=== PATIENT | female | born 1950 | race Caucasian/White ===

== ENCOUNTER → 2018-07-07 | Outpatient (CLI) | payer MEDICARE, OTHER ==
[~2018-07-07] MED LIST: ACET-685 PO; ASPI-484 PO; ATOR20TA PO; DULO60CA7 PO; ESTR30CR VG; GABA300C10 PO; HYDR-3101 PO; IBUP-1131 PO; IBUP200T49 PO; LEVO25TA4 PO; LISI-414 PO; MELO7.5T31 PO; MIRA25TA PO; NITR100C58 PO; OLOP30.5; PHEN100T90 PO; TRAM50TA PO; ZOLP10TA PO; ZOLP10TA5 PO
--- NOTE | 2018-07-07 10:45 | DIREP ---
PROCEDURE:US ABDOMEN LIMITED(SINGLE ORGAN-QUAD) COMPARISON:[facility], CT, CT ABD/PELVIS W/O, 06/25/2014, 09:15 AM. INDICATIONS:R74.8 ALKALINE PHOSPHATASE RAISED, K80.50 BILIARY COLIC, R10.11 RUQ PAIN FINDINGS: CBD:0.4 cm GALLBLADDER:0.2 cm RIGHT KIDNEY:9.4 x 4.9 x 4.0 cm PANCREAS:Normal pancreas. LIVER:Increased hepatic echotexture with poor sonographic penetration consistent with significant hepatic steatosis. Hepatic detail is significantly limited. Hepatopetal flow in the portal vein. GALLBLADDER:Normal appearing gallbladder without evidence for gallbladder wall thickening or pericholecystic fluid. Reverb from bowel gas is noted. BILIARY:There is no biliary ductal dilatation. RIGHT KIDNEY:Normal. No hydronephrosis. OTHER:Negative. No ascites is identified. CONCLUSION:Fatty liver. No definite gallstones. Dictated by: IRISA Physician on 07/07/2018 at 10:13 AM ld
== END | disposition home or self-care (01) ==
LOC: RAD 09:36
PROVIDERS: ATTEND Physician Assistant
DX: K76.0 Fatty (change of) liver, not elsewhere classified (principal); K80.50 Calculus of bile duct without cholangitis or cholecystitis without obstruction; R74.8 Abnormal levels of other serum enzymes
CPT/HCPCS: 76705

== ENCOUNTER → 2018-07-15 | Outpatient (CLI) | payer MEDICARE, OTHER ==
--- NOTE | 2018-07-15 14:50 | DIREP ---
PROCEDURE:NM GALLBLADDER SCAN/NUNN COMPARISON:None. INDICATIONS:R74.8 ALKALINE PHOSPHATASE RAISED, R10.11 RUQ PAIN TECHNIQUE:After obtaining the patient's consent, radiopharmaceutical was injected and images obtained sequentially for one hour. PHARMACEUTICAL(S):6.75 mCi Tc-99m YANNICK derivative. 8 oz ensure plus, PO FINDINGS: LIVER:Normal. BILIARY DUCTS:Normal. Visualized at 5 minutes. GALLBLADDER:Normal. Visualized at 25 minutes INTESTINE:Normal. Visualized at 20 minutes EJECTION FRACTION:72 %. Normal is greater than 35%. Administration of stimulatory agent resulted in severe nausea and moderate cramping. CONCLUSION: 1. Normal hepatic uptake and excretion without evidence of bowel obstruction. 2. Normal gallbladder ejection fraction of 72%. Dictated by: Sam Acevedo MD on 07/15/2018 at 02:48 PM
== END | disposition home or self-care (01) ==
LOC: RAD 11:25
PROVIDERS: ATTEND Family Medicine
DX: R74.8 Abnormal levels of other serum enzymes (principal); R10.11 Right upper quadrant pain
CPT/HCPCS: 78227; A9537

== ENCOUNTER 2020-09-21 16:13 | Emergency (ER) | payer MEDICARE, OTHER ==
[~2020-09-21] VITALS: Ht 162.6 cm; Wt 83.9 kg
[~2020-09-21 16:13] MED LIST changes: -ASPI-484 PO; +ASPI-485 PO; -LISI-414 PO; +LISI-593 PO
[2020-09-21 16:30] VITALS: BP 139/63
--- NOTE | 2020-09-21 16:35 | NUR ---
ARRIVAL PATIENT ARRIVED TO ED3 AMBULATORY, C/O OF DIZZINESS TODAY WITH A SYNCOPAL EPISODE AND A HEADACHE FOR ONE YEAR, PATIENT STATES SHE TOOK HER BLOOD PRESSURE TODAY AND IT WAS LOW, CALLED HER POLICE RESERVES COMMANDER AND WAS TOLD TO COME TO THE ED FOR EVAL, DOCTOR JAMES NOTIFIED OF PATIENT'S ARRIVAL.
[2020-09-21] MEDS ORDERED: NS 1000ML 1,000 ML IV STA (17:21)
--- NOTE | 2020-09-21 17:32 | PCM.EKG ---
[facility] Test Date: 2020-09-21 Test Time: 17:27:02 Pat Name: WADE SAWYER Department: Room: Gender: F [employer] Supervisor: MELISSA : [id number] Requested By: ADRIEL RAMIREZ Order Number: [id number] Reading MD: Adriel RAMIREZ Measurements Intervals Priddy Rate: 62 P: 68 OK: 169 QRS: 59 QRSD: 100 T: 53 QT: 425 QTc: 432 Interpretive Statements Sinus rhythm Abnormal R-wave progression, early transition Borderline repolarization abnormality Baseline wander in lead(s) V1,V2 No previous ECG available for comparison Electronically Signed On 09-27-2020 7:10:22 CDT by Adriel RAMIREZ Please click the below link to view image of tracing.
[2020-09-21 17:34] LABS: BASOPHIL % 0.2 % (0.0-0.2); EOSINOPHIL # 0.1 10^3/uL (0.0-0.2); EOSINOPHIL % 0.9 % (0.0-5.0); LYMPHOCYTES # 2.72 10^3/uL1 (1.0-4.8); LYMPHOCYTES % 28.4 % (24.0-44.0); MEAN CORP HGB 30.2 pg (26-34); MONOCYTES # 0.6 10^3/uL (0.3-0.8); MONOCYTES % 5.7 % (5.0-12.0); NEUTROPHIL # 6.2 10^3/uL (1.8-7.7); NEUTROPHILS % 64.7 % (41.0-85.0); PLATELET COUNT 262 10^3/uL (150-400); RED CELL DISTRIBUTION WIDTH 12.4 % (11.5-14.5)
--- NOTE | 2020-09-21 17:55 | DIREP ---
PROCEDURE:CT HEAD OR BRAIN W/O CONTRAST COMPARISON:[facility], CR, XRAY CHEST SINGLE VW, 09/21/2020, 05:45 PM. INDICATIONS:Syncope TECHNIQUE:Axial CT images were obtained from vertex to the skull base without the administration of IV contrast. FINDINGS: VENTRICLES: The ventricles are normal in size and configuration for age. No hydrocephalus. CEREBRUM: Normal cerebral morphology with appropriate martinez white matter differentiation. No intracranial hemorrhage, mass-effect, or midline shift. No CT evidence of acute infarction. CEREBELLUM: Normal. BRAINSTEM: Normal. BASAL CISTERNS: Normal. SKULL: Normal. No fracture. SINUSES: Normal. Visualized paranasal sinuses and mastoid air cells are clear. OTHER: None. No scalp swelling. CONCLUSION: No acute intracranial abnormality. Dictated by: Hemant Barfield MD on 09/21/2020 at 05:51 PM
--- NOTE | 2020-09-21 17:57 | ER.PDOC ---
General Chief Complaint: General Complaint Stated Complaint: LOW BLOOD PRESSURE TRAVEL OUT OF US: No Time seen by MD: 17:54 Source: patient Exam Limitations: no limitations History of Present Illness Initial Comments Low blood pressure today and patient also told me that she might have had a syncopal episode this morning but she is not very sure. No chest pain or shortness of breath. She complains of a headache for 1 year. No nausea or vomiting. No fever or chills. No neck pain or stiffness. Severity: moderate Associated Symptoms: denies symptoms Allergies: Coded Allergies: No Known Allergies (Unverified , 02/20/16) Home Meds Reported Medications Zolpidem Tartrate (AMBIEN) 10 Mg Tablet, 1 TAB PO HS, #30 TAB 5 Refills 08/17/15 Hydrocodone Bit/Acetaminophen (NORCO 7.5-325) 1 Each Tablet, 2 TAB PO BID, #120 TAB 08/09/15 Gabapentin (GABAPENTIN) 300 Mg Capsule, 1 CAP PO BID, #90 CAP 3 Refills 08/09/15 Meloxicam (MELOXICAM) 7.5 Mg Tablet, 1 TAB PO DAILY, #30 TAB 2 Refills 03/09/15 Levothyroxine Sodium (LEVOTHYROXINE SODIUM) 25 Mcg Tablet, 25 MCG PO DAILY, TABLET 04/28/14 Duloxetine Hcl (CYMBALTA) 60 Mg Capsule.dr, 60 MG PO DAILY 04/28/14 Lisinopril (LISINOPRIL) 5 Mg Tablet, 5 MG PO DAILY, TABLET 04/28/14 Atorvastatin 20MG (LIPITOR 20MG) 20 Mg Tablet, 20 MG PO DAILY, TAB 04/28/14 Past Medical History Medical History: cardiac problems, diabetes, hypertension, thyroid disease Surgical History: appendectomy, back, tonsillectomy, other Family History Significant Family History: no pertinent family hx Social History Smoking: non-smoker Alcohol Use: none Drug Use: none Review of Systems Constitutional: no symptoms reported EENTM: no symptoms reported Respiratory: no symptoms reported Cardiovascular: no symptoms reported Gastrointestinal: no symptoms reported Psychiatric/Neurological: see HPI All Other Systems: Reviewed and Negative Physical Exam General Appearance: No Apparent Distress, WD/WN Neck: Non-Tender, Full Range of Motion, Supple, Normal Inspection Respiratory: chest non-tender, lungs clear, normal breath sounds, no respiratory distress CVS: reg rate & rhythm, no murmur, no gallop, pulses nml, nml capillary refill Gastrointestinal: Normal Bowel Sounds, No Organomegaly, No Pulsatile Mass, Non Tender Back: Normal Inspection, No CVA Tenderness, No Vertebral Tenderness Extremities: Normal Range of Motion, Non-Tender, Normal Inspection, No Pedal Edema Neurologic/Psychiatric: 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 starch 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 II-XII NML as Tested, No Motor/Sensory Deficits, Alert, Normal Mood/Affect, Oriented x 3 Skin: Normal Color, Warm/Dry Lymphatic: No Adenopathy Results/Orders Results/Orders Orders - ADRIEL RAMIREZ MD Cbc With Auto Diff (09/21/20 17:21) Comprehensive Metabolic Panel (09/21/20 17:21) Creatine Kinase (09/21/20 17:21) Creatine Kinase Mb (09/21/20 17:21) Troponin I (09/21/20 17:21) Xr Chest 1v (09/21/20 17:21) Ekg-Routine (09/21/20 17:21) Ct Head Wo Contrast (09/21/20 17:21) Urinalysis (09/21/20 17:21) 0.9 % Sodium Chloride (Ns 1000ml) (09/21/20 17:21) PT (09/21/20 17:29) Partial Thromboplastin Time. (09/21/20 17:29) Urine Culture (09/21/20 18:40) 0.9 % Sodium Chloride (Ns 1000ml) (09/21/20 18:53) Vital Signs Date Time Temp Pulse Resp B/P (MAP) Pulse Ox O2 Delivery O2 Flow Rate FiO2 09/21/20 16:30 97.6 71 16 09/21/20 16:30 97.6 71 16 139/63 (88) 99 Room Air 09/21/20 16:30 97.6 71 16 99 Laboratory Tests Test 09/21/20 17:30 09/21/20 18:40 White Blood Count 9.6 10^3/uL (4.5-11.0) Red Blood Count 4.01 10^6/uL (4.00-5.20) Hemoglobin 12.1 g/dL (12.0-15.0) Hematocrit 37.1 % (36.0-46.0) Mean Corpuscular Volume 92.5 fL (78-100) Mean Corpuscular Hemoglobin 30.2 pg (26-34) Mean Corpuscular Hemoglobin Concent 32.6 g/dL (33-36.5) L Red Cell Distribution Width 12.4 % (11.5-14.5) Platelet Count 262 10^3/uL (150-400) Mean Platelet Volume 10.8 fL (7.8-11.0) Neutrophils (%) (Auto) 64.7 % (41.0-85.0) Lymphocytes (%) (Auto) 28.4 % (24.0-44.0) Monocytes (%) (Auto) 5.7 % (5.0-12.0) Neutrophils # (Auto) 6.2 10^3/uL (1.8-7.7) Lymphocytes # (Auto) 2.72 10^3/uL1 (1.0-4.8) Monocytes # (Auto) 0.6 10^3/uL (0.3-0.8) Absolute Immature Granulocyte (auto 0.01 10^3 u/L (0-2) Absolute Eosinophils (auto) 0.1 10^3/uL (0.0-0.2) Immature Granulocytes % 0.10 % (0.00-0.50) Eosinophils % 0.9 % (0.0-5.0) Basophils % 0.2 % (0.0-0.2) Basophils # 0.0 10^3/uL (0.0-0.1) Prothrombin Time 10.6 SEC (9.6-12.0) Prothrombin Time INR (Non-Therap) 1.0 Activated Partial Thromboplast Time 22.0 SEC (24.67-30.72) Sodium Level 138 mmol/L (132-145) Potassium Level 3.7 mmol/L (3.6-5.2) Chloride Level 105.0 mmol/L (96-109) Carbon Dioxide Level 18.2 mmol/L (20.0-32) L Anion Gap 18.5 Blood Urea Nitrogen 20 mg/dL (7-18) H Creatinine 0.66 mg/dL (0.59-1.40) Estimated GFR () 106.5 (>/=60) Est GFR (CKD-EPI)(Non-Afr Romanian) 88.0 (>/=60) BUN/Creatinine Ratio 30.0 Glucose Level 160 mg/dL (70-110) H Calcium Level 8.6 mg/dL (8.4-10.5) Total Bilirubin 0.2 mg/dL (0.2-1.0) Aspartate Amino Transferase (AST) 22 U/L (0-35) Alanine Aminotransferase (ALT) 26 U/L (12-78) Alkaline Phosphatase 98 U/L (50-136) Total Creatine Kinase 78 U/L (26-192) Creatine Kinase MB 0.5 ng/mL (0.5-3.6) Troponin I < 0.02 ng/mL (0.00-0.05) Total Protein 6.3 g/dL (6.4-8.2) L Albumin 3.6 g/dL (3.4-5.0) Globulin 2.7 Albumin/Globulin Ratio 1.333 Urine Collection Type CCMS Urine Color YELLOW Urine Appearance CLEAR Urine Bilirubin NEGATIVE (NEGATIVE) Urine Ictotest (NEGATIVE) Urine Ketones TRACE (NEGATIVE) H Urine Specific [place] 1.025 (1.005-1.030) Urine pH 5.5 (4.5-8.0) Urine Protein NEGATIVE (NEGATIVE) Urine Urobilinogen 0.2 E.U./dL (0.2) Urine Nitrate NEGATIVE (NEGATIVE) Urine Leukocyte Esterase TRACE (NEGATIVE) H Urine Glucose (Auto)(UA) NEGATIVE (NEGATIVE) Urine Blood NEGATIVE (NEGATIVE) Urine RBC 0-2 RBC/HPF (NONE SEEN) Urine WBC 2-5 WBC/HPF (0-2) Urine Squamous Epithelial Cells FEW #/HPF (FEW) Urine Bacteria FEW (NONE SEEN) H Progress Progress Labs are unremarkable. Patient tilted and so will be hydrated with NS. Patient feels better after hydration and ready to go home. EKG/XRAY/CT/US EKG: NSR, no ST T wave changes EKG Comments: HR 62, normal P axis XRAY: chest (No acute abnormality) CT Comments: No acute abnormality on CT head ER DEPART Departure Time of Disposition: 19:02 Disposition: 01 HOME / SELF CARE / HOMELESS Impression: Primary Impression: Dehydration Additional Impressions: UTI (urinary tract infection) Headache Condition: Improved Referrals: MADHURI VAZQUEZ MD (PCP) PRIMARY CARE PROVIDER Additional Instructions: Ciprofloxacin Push fluids at home Follow-up with your PCP in 1 to 2 days Return to ED if worsening symptoms or concerns Duration or Time Spent with Pa: 60 min Problem Qualifiers Additional Impressions: UTI (urinary tract infection) Urinary tract infection type: site unspecified Hematuria presence: without hematuria Qualified Codes: N39.0 - Urinary tract infection, site not specified Headache Headache type: unspecified Headache chronicity pattern: chronic headache Intractability: not intractable Qualified Codes: R51.9 - Headache, unspecified; G89.29 - Other chronic pain ADRIEL RAMIREZ MD Sep 21, 2020 17:57
--- NOTE | 2020-09-21 18:02 | DIREP ---
PROCEDURE:CHEST 1 VIEW COMPARISON:None. INDICATIONS:Syncope FINDINGS: LUNGS/PLEURA:No significant pulmonary parenchymal abnormalities. No effusions. VASCULATURE:Normal. Unremarkable pulmonary vasculature. CARDIAC:Normal. No cardiac silhouette abnormality or cardiomegaly. MEDIASTINUM:Normal. No visible mass or adenopathy. BONES:Normal. No fracture or visible bony lesion. OTHER:Dorsal column stimulator CONCLUSION:Negative exam Dictated by: Royer Jiang M.D. on 09/21/2020 at 05:59 PM
[2020-09-21 18:18] LABS: ALANINE AMINOTRANSFERASE(ML) 26 U/L (12-78); ALKALINE PHOSPHATASE 98 U/L (50-136); ASPARTATE AMINO TRANSFERASE 22 U/L (0-35); CALCIUM 8.6 mg/dL (8.4-10.5); CARBON DIOXIDE 18.2 mmol/L (20.0-32); GLUCOSE 160 mg/dL (70-110)
[2020-09-21 18:45] LABS: BILIRUBIN,URINE NEGATIVE (NEGATIVE); UA COLOR YELLOW; UROBILINOGEN,URINE 0.2 E.U./dL (0.2)
[2020-09-21] MEDS ORDERED: NS 1000ML 1,000 ML ONE (18:53)
--- NOTE | 2020-09-21 19:30 | NUR ---
IV DC'D DC'D BY MARY VEGA, TIP INTACT, NO BLEEDING
[2020-09-21 19:33] VITALS: BP 102/63
== END 2020-09-21 19:33 | disposition home or self-care (01) ==
LOC: ER 16:13
DX: N39.0 Urinary tract infection, site not specified (principal); E86.0 Dehydration; G89.29 Other chronic pain; E11.22 Type 2 diabetes mellitus with diabetic chronic kidney disease; E07.9 Disorder of thyroid, unspecified; I12.9 Hypertensive chronic kidney disease with stage 1 through stage 4 chronic kidney disease, or unspecified chronic kidney disease; R51.9 Headache, unspecified; Z88.8 Allergy status to other drugs, medicaments and biological substances
CPT/HCPCS: 36415; 70450; 71045; 80053; 81001; 82550; 82553; 84484; 85025; 85610; 85730; 87086; 93005; 99285; J7030; 81003

== ENCOUNTER 2020-10-07 10:27 | Emergency (ER) | payer MEDICARE, OTHER ==
[2020-10-07 10:36] VITALS: BP 142/80
--- NOTE | 2020-10-07 10:55 | ER.PDOC ---
General Chief Complaint: Requesting Medical Care Stated Complaint: ABD PAIN Time seen by MD: 10:37 Source: patient Exam Limitations: no limitations History of Present Illness Initial Comments This 70-year-old white female comes over from the primary care office for evaluation of abdominal pain that started 2 days ago. This pain is diffuse and when I asked her to describe it she really cannot when I asked her does hurt more upper or lower she states is just hurts everywhere and cannot isolate or find a specific area that is more painful than another. She denies having any vomiting or diarrhea with this. She also denies any fevers or chills. The abdominal pain is getting worse each day. Now it is so severe it is painful to even just walk.Patient however looks quite good. I followed her down the hallway as she was taken from the bathroom to her exam room and she ambulated without any apparent discomfort at all. She also got on the stretcher and laid back moving did not seem to make anything worse either Severity/Quality: severe, aching Radiation: no radiation Associated Symptoms: denies symptoms (nausea, but, no vomiting), nausea/vomiting Exacerbated by: movements, walking (She reports is made worse by movement and walking but as I observed her walking down the hallway and movement in the exam room, I do not see any impediment at all) Relieved By: nothing Allergies: Coded Allergies: No Known Allergies (Unverified , 02/20/16) Home Meds Reported Medications Zolpidem Tartrate (AMBIEN) 10 Mg Tablet, 1 TAB PO HS, #30 TAB 5 Refills 08/17/15 Hydrocodone Bit/Acetaminophen (NORCO 7.5-325) 1 Each Tablet, 2 TAB PO BID, #120 TAB 08/09/15 Gabapentin (GABAPENTIN) 300 Mg Capsule, 1 CAP PO BID, #90 CAP 3 Refills 08/09/15 Meloxicam (MELOXICAM) 7.5 Mg Tablet, 1 TAB PO DAILY, #30 TAB 2 Refills 03/09/15 Levothyroxine Sodium (LEVOTHYROXINE SODIUM) 25 Mcg Tablet, 25 MCG PO DAILY, TABLET 04/28/14 Duloxetine Hcl (CYMBALTA) 60 Mg Capsule.dr, 60 MG PO DAILY 04/28/14 Lisinopril (LISINOPRIL) 5 Mg Tablet, 5 MG PO DAILY, TABLET 04/28/14 Atorvastatin 20MG (LIPITOR 20MG) 20 Mg Tablet, 20 MG PO DAILY, TAB 04/28/14 Vital Signs First Vital Signs Date Time Temp Pulse Resp B/P (MAP) Pulse Ox O2 Delivery O2 Flow Rate FiO2 10/07/20 10:36 97.5 64 18 142/80 (100) 98 Room Air Last Vital Signs Date Time Temp Pulse Resp B/P (MAP) Pulse Ox O2 Delivery O2 Flow Rate FiO2 10/07/20 10:36 97.5 64 18 10/07/20 10:36 98 10/07/20 10:36 142/80 (100) Room Air Past Medical History Medical History: cardiac problems, diabetes, hypertension, thyroid disease, other (Chronic pain syndrome) Surgical History: appendectomy, back, shoulder, tonsillectomy, other Social History Smoking: non-smoker Alcohol Use: none Drug Use: none Gastrointestinal: abdominal pain Musculoskeletal: back pain All Other Systems: Reviewed and Negative Physical Exam General Appearance: No Apparent Distress, WD/WN HEENT: PERRL/EOMI, Normal ENT Inspection, TMs Normal, Pharynx Normal Neck: Non-Tender, Full Range of Motion, Supple, Normal Inspection Respiratory: chest non-tender, lungs clear, normal breath sounds, no respiratory distress, no accessory muscle use Cardiovascular: Normal Peripheral Pulses, Regular Rate, Rhythm, No Edema, No Gallop, No JVD, No Murmur Gastrointestinal: Hypoactive bowel sounds, Tenderness Back: Normal Inspection, No CVA Tenderness, No Vertebral Tenderness Extremities: Normal Range of Motion, Non-Tender, Normal Inspection, No Pedal Edema, No Calf Tenderness, Normal Capillary Refill, Pelvis Stable Neurologic/Psychiatric: soaker helper II-XII NML as Tested, No Motor/Sensory Deficits, Alert, Normal Mood/Affect, Oriented x 3 Skin: Normal Color, Warm/Dry Lymphatic: No Adenopathy Results/Orders Results/Orders Orders - DAMARIS PAGAN MD Cbc With Auto Diff (10/07/20 10:56) Comprehensive Metabolic Panel (10/07/20 10:56) Amylase (10/07/20 10:56) Lipase (10/07/20 10:56) Helicobacter Pylori (10/07/20 10:56) PT (10/07/20 10:56) Partial Thromboplastin Time. (10/07/20 10:56) Urinalysis (10/07/20 10:56) Urine Culture (10/07/20 10:50) Ct Abd/Pel With Iv Contrast (10/07/20 13:59) Vital Signs Date Time Temp Pulse Resp B/P (MAP) Pulse Ox O2 Delivery O2 Flow Rate FiO2 10/07/20 10:36 97.5 64 18 10/07/20 10:36 97.5 64 18 98 10/07/20 10:36 97.5 64 18 142/80 (100) 98 Room Air Laboratory Tests Test 10/07/20 10:50 White Blood Count 8.2 10^3/uL (4.5-11.0) Red Blood Count 4.20 10^6/uL (4.00-5.20) Hemoglobin 12.7 g/dL (12.0-15.0) Hematocrit 38.5 % (36.0-46.0) Mean Corpuscular Volume 91.7 fL (78-100) Mean Corpuscular Hemoglobin 30.2 pg (26-34) Mean Corpuscular Hemoglobin Concent 33.0 g/dL (33-36.5) Red Cell Distribution Width 13.2 % (11.5-14.5) Platelet Count 284 10^3/uL (150-400) Mean Platelet Volume 11.2 fL (7.8-11.0) H Neutrophils (%) (Auto) 56.3 % (41.0-85.0) Lymphocytes (%) (Auto) 35.0 % (24.0-44.0) Monocytes (%) (Auto) 7.2 % (5.0-12.0) Neutrophils # (Auto) 4.6 10^3/uL (1.8-7.7) Lymphocytes # (Auto) 2.88 10^3/uL1 (1.0-4.8) Monocytes # (Auto) 0.6 10^3/uL (0.3-0.8) Absolute Immature Granulocyte (auto 0.01 10^3 u/L (0-2) Absolute Eosinophils (auto) 0.1 10^3/uL (0.0-0.2) Immature Granulocytes % 0.10 % (0.00-0.50) Eosinophils % 1.2 % (0.0-5.0) Basophils % 0.2 % (0.0-0.2) Basophils # 0.0 10^3/uL (0.0-0.1) Prothrombin Time 10.0 SEC (9.6-12.0) Prothrombin Time INR (Non-Therap) 0.9 Activated Partial Thromboplast Time 24.1 SEC (24.67-30.72) Urine Collection Type RANDOM Urine Color YELLOW Urine Appearance CLEAR Urine Bilirubin NEGATIVE (NEGATIVE) Urine Ketones NEGATIVE (NEGATIVE) Urine Specific [place] 1.025 (1.005-1.030) Urine pH 5.0 (4.5-8.0) Urine Protein NEGATIVE (NEGATIVE) Urine Urobilinogen 0.2 E.U./dL (0.2) Urine Nitrate NEGATIVE (NEGATIVE) Urine Leukocyte Esterase TRACE (NEGATIVE) H Urine Glucose (Auto)(UA) NEGATIVE (NEGATIVE) Urine Blood NEGATIVE (NEGATIVE) Urine RBC 0-2 RBC/HPF (NONE SEEN) Urine WBC 2-5 WBC/HPF (0-2) Urine Squamous Epithelial Cells MODERATE #/HPF (FEW) Urine Bacteria NONE SEEN (NONE SEEN) Sodium Level 141 mmol/L (132-145) Potassium Level 4.1 mmol/L (3.6-5.2) Chloride Level 105.0 mmol/L (96-109) Carbon Dioxide Level 25.9 mmol/L (20.0-32) Anion Gap 14.2 Blood Urea Nitrogen 10 mg/dL (7-18) Creatinine 0.75 mg/dL (0.59-1.40) Estimated GFR () 91.9 (>/=60) Est GFR (CKD-EPI)(Non-Afr Lithuanian) 76.0 (>/=60) BUN/Creatinine Ratio 13.0 Glucose Level 108 mg/dL (70-110) Calcium Level 8.8 mg/dL (8.4-10.5) Total Bilirubin 0.4 mg/dL (0.2-1.0) Aspartate Amino Transferase (AST) 19 U/L (0-35) Alanine Aminotransferase (ALT) 21 U/L (12-78) Alkaline Phosphatase 125 U/L (50-136) Total Protein 7.4 g/dL (6.4-8.2) Albumin 4.1 g/dL (3.4-5.0) Globulin 3.3 Albumin/Globulin Ratio 1.242 Amylase Level 31 U/L (25-115) Lipase 78 U/L (114-286) L Helicobacter pylori Screen NEGATIVE (NEGATIVE) Progress Progress Laboratory data back on this patient and the WBC is completely normal H. pylori is negative. Metabolic panel is all normal except lipase is actually low at 78, coags are normal .Urinalysis is normal CT scan showed acute epiploic appendagitis involving the sigmoid colon no evidence of diverticulitis ER DEPART Departure Time of Disposition: 15:15 Disposition: 01 HOME / SELF CARE / HOMELESS Impression: Primary Impression: Epiploic appendagitis Condition: Improved Referrals: MADHURI VAZQUEZ MD (PCP) PRIMARY CARE PROVIDER Comments Patient is advised that the treatment for this is strictly pain management with Tylenol and Motrin. Patient is instructed that if she starts getting sick like bowel obstruction symptoms or fevers and chills intractable vomiting she needs to come back and be scanned again. But for right now, symptomatic treatment is all that is required. Duration or Time Spent with Pa: 35m DAMARIS PAGAN MD Oct 07, 2020 10:55
[2020-10-07 11:12] LABS: BASOPHIL % 0.2 % (0.0-0.2); EOSINOPHIL # 0.1 10^3/uL (0.0-0.2); EOSINOPHIL % 1.2 % (0.0-5.0); LYMPHOCYTES # 2.88 10^3/uL1 (1.0-4.8); MEAN CORP HGB 30.2 pg (26-34); MONOCYTES # 0.6 10^3/uL (0.3-0.8); MONOCYTES % 7.2 % (5.0-12.0); NEUTROPHIL # 4.6 10^3/uL (1.8-7.7); NEUTROPHILS % 56.3 % (41.0-85.0); PLATELET COUNT 284 10^3/uL (150-400); RED CELL DISTRIBUTION WIDTH 13.2 % (11.5-14.5)
[2020-10-07 11:22] LABS: CALCIUM 8.8 mg/dL (8.4-10.5); CARBON DIOXIDE 25.9 mmol/L (20.0-32)
[2020-10-07 11:26] LABS: BILIRUBIN,URINE NEGATIVE (NEGATIVE); UA COLOR YELLOW; UROBILINOGEN,URINE 0.2 E.U./dL (0.2)
[2020-10-07 11:40] VITALS: BP 138/82
[2020-10-07 12:40] VITALS: BP 122/84
[2020-10-07 13:40] VITALS: BP 114/82
--- NOTE | 2020-10-07 14:45 | DIREP ---
PROCEDURE:CT ABDOMEN/PELVIS W/ CONTRAST COMPARISON:[facility], CR, XRAY CHEST SINGLE VW, 09/21/2020, 05:45 PM. [facility], CT, CT HEAD BRAIN W/O CONTRAST, 09/21/2020, 05:26 PM. INDICATIONS:abd pain TECHNIQUE:Axial images were created through the abdomen and pelvis with non-ionic intravenous contrast material. No oral contrast was administered. Sagittal and coronal reconstructions were performed from source images. FINDINGS: LUNG BASES:Normal. No visible pulmonary or pleural disease. LIVER:Normal. No significant liver lesions are identified. BILIARY:Normal. No visible dilatation or calcification. PANCREAS:Normal. No lesion, fluid collection, ductal dilatation, or atrophy. SPLEEN:Normal. No enlargement or focal lesion. ADRENALS:Normal. No mass or enlargement. URINARY TRACT:Normal. No focal lesions or hydronephrosis. AORTA/VASCULAR:There are aortic atherosclerotic calcifications present. No aneurysm. RETROPERITONEUM:Normal. No mass or adenopathy. BOWEL/MESENTERY:The small bowel is normal caliber. The terminal ileum is unremarkable. Numerous surgical clips are seen compatible with likely prior appendectomy. There are areas of stranding surrounding an epiploic appendage involving the sigmoid colon. There is no evidence of perforation or abscess formation. ABDOMINAL WALL:Normal. No mass or hernia. PELVIC ORGANS:Normal. No visible mass. Pelvic organs appropriate for patient age. BONES:Stimulator leads are seen in the thoracic spine. Multilevel degenerative changes are seen in the lumbar spine with significant loss of disc space of L4/L5 and L5/S1. Marked loss of disc space with endplate sclerosis seen at L2/L3. OTHER:Negative. CONCLUSION: 1. Acute epiploic appendagitis involving the sigmoid colon. 2. No evidence of diverticulitis. Dictated by: Sam Acveedo MD on 10/07/2020 at 02:37 PM
[2020-10-07 14:50] VITALS: BP 118/80
[2020-10-07 15:20] VITALS: BP 128/83
== END 2020-10-07 15:25 | disposition home or self-care (01) ==
LOC: ER 10:27
DX: K63.89 Other specified diseases of intestine (principal); E11.9 Type 2 diabetes mellitus without complications; I10 Essential (primary) hypertension; Z79.899 Other long term (current) drug therapy
CPT/HCPCS: 36415; 74177; 80053; 81001; 82150; 83690; 85025; 85610; 85730; 86677; 87077; 87086; 87186; 99285; Q9965

== ENCOUNTER → 2021-03-13 | Outpatient (CLI) | payer MEDICARE, OTHER ==
[~2021-03-13] MED LIST changes: -DULO60CA7 PO; +DULO60CA8 PO; -LISI-593 PO; +LISI5TAB18 PO
[2021-03-13 11:31] LABS: ALANINE AMINOTRANSFERASE(ML) 20 U/L (12-78); ALKALINE PHOSPHATASE 99 U/L (50-136); ASPARTATE AMINO TRANSFERASE 14 U/L (0-35)
== END | disposition home or self-care (01) ==
LOC: LAB 10:49
PROVIDERS: ATTEND Internal Medicine Gastroenterology
DX: R74.8 Abnormal levels of other serum enzymes (principal)
CPT/HCPCS: 36415; 80076

== ENCOUNTER → 2021-12-13 | Outpatient (CLI) | payer MEDICARE, OTHER | END | disposition home or self-care (01) | LOC: NPLAB 10:18 | PROVIDERS: ATTEND Nurse Practitioner Adult Health | DX: R30.0 Dysuria (principal) | CPT/HCPCS: 87086 ==

== ENCOUNTER → 2022-02-06 | Outpatient (CLI) | payer MEDICARE, OTHER ==
--- NOTE | 2022-02-06 15:53 | DIREP ---
PROCEDURE:MRI L SPINE W O CONTRAST TECHNIQUE:Axial T1 and T2; coronal T2; sagittal T1, T2 and inversion recovery sequences were obtained of the lumbar spine. COMPARISON:[facility], MRI SPINE LUMBAR W/O, 02/25/2018, 03:01 PM. INDICATIONS:M47.816 SPONDYLOSIS WITHOUT MYELOPATHY OR RADICULOPATHY, LUMBAR REGION FINDINGS: ALIGNMENT:2.3 mm retrolisthesis of L2 on L3 unchanged from previous study. VERTEBRAE:No fractures. Anterior osteophyte formation T12-L1, L1-L2 and L2-L3. 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 PARASPINAL AREA:Small cyst upper right kidney. OTHER:The conus medullaris is normal in signal and morphology and ends at the proximal L2 level. LUMBAR DISC LEVELS T12-L1:Normal. L1-2:The disc is desiccated. There is no central canal or foraminal stenosis. L2-3:The disc is narrowed and desiccated with adjacent endplate irregularity which was on the previous study. There is posterior osteophytic ridging with mild facet arthrosis. There is no central canal stenosis. There is [id number] left foraminal narrowing and mild right foraminal narrowing. L3-4:The disc is desiccated and narrowed with mild circumferential disc bulging. There is bilateral facet arthrosis. There is no central canal stenosis. There is mild bilateral inferior foraminal narrowing. L4-5:The disc is narrowed. There is no posterior disc pathology. There is mild facet arthrosis. There is no central canal stenosis. There is mild bilateral foraminal stenosis on the left and moderate foraminal narrowing on the right. L5-S1:The disc is collapsed. This shows progression from previous study. There is no posterior disc pathology. There is bilateral facet arthrosis. There is no central canal or foraminal stenosis. CONCLUSION: 1. Multilevel degenerative changes. There is progression of disc space loss at L5-S1. Endplate irregularity is present at L2-3 unchanged from previous study. 2. [id number] foraminal narrowing from L2-3 through L4-5. 3. No new focal disc protrusion. Dictated by: Zeus Ferrer M.D. on 02/06/2022 at 03:40 PM
== END | disposition home or self-care (01) ==
LOC: RAD 12:58
PROVIDERS: ATTEND Family Medicine
DX: M47.817 Spondylosis without myelopathy or radiculopathy, lumbosacral region (principal); M48.061 Spinal stenosis, lumbar region without neurogenic claudication
CPT/HCPCS: 72148